=== PATIENT | male | born 1965 | race Caucasian/White ===

== ENCOUNTER 2018-05-27 10:45 | Emergency (ER) | payer OTHER ==
[~2018-05-27] VITALS: Ht 170.2 cm; Wt 91.4 kg
[2018-05-27] MEDS ORDERED: ULTRAM50 MG PO (12:13)
[2018-05-27 12:17] VITALS: BP 151/93
== END 2018-05-27 13:28 | disposition home or self-care (01) ==
LOC: EME 10:45
DX: T15.91XA Foreign body on external eye, part unspecified, right eye, initial encounter (principal); H57.8 Other specified disorders of eye and adnexa; Y93.89 Activity, other specified; Y92.89 Other specified places as the place of occurrence of the external cause; Y99.0 Civilian activity done for income or pay
CPT/HCPCS: 99281; 99284; J7120